=== PATIENT | female | born 2000 | race Caucasian/White ===

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

== ENCOUNTER 2022-08-24 11:24 | Outpatient (REF) | payer MEDICAID, SELFPAY ==
--- NOTE | 2022-08-24 07:40 | PAPFT_PTH ---
PATIENT: Anni Aguiar LOC: [facility] U#:[id number] AGE/SX: 21/F ROOM: RE08/24/[address]: Peña Vargas DNP : 2000 BED: DIS: 08/24/2022 SPEC #: [id number] RECD: 08/24/22 12:41 STATUS: CHARIS REDana #: [id number] ADAN: 08/24/22 07:[address]: Peña Lou DEPT: [facility] Cytology RECD BY: Chely Quevedo Tissues: 1 - CX/ENDOCX FOR PAP SMEARS Procedures: PAP THIN PREP/[facility] Screening Comments: [id number]
== END 2022-08-24 11:25 | disposition home or self-care (01) ==
LOC: LBN 11:24
PROVIDERS: PCP Nurse Practitioner Family; Visit Provider Nurse Practitioner Family
DX: Z12.4 Encounter for screening for malignant neoplasm of cervix (principal)
CPT/HCPCS: 88142

== ENCOUNTER 2023-08-28 10:29 | Outpatient (REF) | payer MEDICAID, SELFPAY ==
[2023-08-29 09:27] LABS: Hepatitis C Ab w Rflx HCV PCR Negative (Negative)
[2023-08-29 09:44] LABS: HIV-1/2 Ag & Ab Screen Negative (Negative)
[2023-08-29 10:50] LABS: Syphilis Serology (RPR) Negative (Negative)
[2023-08-29 13:06] LABS: Chlamydia Result Negative (Negative); GC Result Negative (Negative)
== END 2023-08-28 10:30 | disposition home or self-care (01) ==
LOC: LBN 10:29
PROVIDERS: PCP Nurse Practitioner Family; Visit Provider Nurse Practitioner Family
DX: Z11.3 Encounter for screening for infections with a predominantly sexual mode of transmission (principal)
CPT/HCPCS: 86803; 87389; 87491; 87591; 86592

== ENCOUNTER 2023-10-10 15:01 | Outpatient (REF) | payer MEDICAID, SELFPAY | END 2023-10-10 15:02 | disposition home or self-care (01) | LOC: LBN 15:01 | PROVIDERS: PCP Nurse Practitioner Family; Visit Provider Physician Assistant | DX: J02.9 Acute pharyngitis, unspecified (principal) | CPT/HCPCS: 87070 ==

== ENCOUNTER 2024-01-29 18:52 | Emergency (ER) | payer MEDICAID, SELFPAY ==
[2024-01-29 18:53] VITALS: BP 127/79; PULSE 81; RESP 12; TEMP 36.9; O2SAT 98
--- NOTE | 2024-01-29 20:01 | DI.RAD_ITS ---
Exam(s) XR FINGER RT INDEX EXAM: XR FINGER RT INDEX CLINICAL HISTORY: cat bite mcps, 2nd. TECHNIQUE: 2D digital imaging was performed. COMPARISON: No exams were available for comparison FINDINGS: 3 views No evidence of acute fracture or dislocation. No radiopaque foreign body. No osseous lesions. No e rosions. No degenerative changes. No radiopaque foreign bodies. IMPRESSION: No significant radiographic findings. DATA REPOSITORY: RADIATION DOSE DELIVERED:
[2024-01-29] MEDS: Rabies vaccine (PCEC)/PF 2.5 UNITS/ML VIAL IM (20:30)
[2024-01-29] MEDS: Amox. 875/Clav. 125, 2 TABS/BTL 1 TAB PO (20:30)
[2024-01-29] MEDS: Rabies Immune Globulin 300 UNIT/ML VIAL 1500 UNIT IM (20:30)
--- NOTE | 2024-01-29 20:31 | DI.VRAD_ITS ---
PROCEDURE INFORMATION: Exam: XR Right Finger(s) Exam date and time: 01/29/2024 7:56 PM Age: 23 years old Clinical indication: Injury or trauma; Index finger; Right; Injury date: 01/29/24; Patient HX: Cat bite mcps, 2nd TECHNIQUE: Imaging protocol: Radiologic exam of the right fingers. Views: Minimum 2 views. COMPARISON: No relevant prior studies available. FINDINGS: Bones/joints: Normal. Soft tissues: Normal. IMPRESSION: No acute findings. Dictated and Authenticated by: Fei Romero MD. Ordering:DEMETRIUS Mo MD
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
[2024-01-29 21:12] VITALS: BP 120/75; PULSE 71; RESP 16; O2SAT 100
--- NOTE | 2024-01-30 00:20 | NUR.NOTE ---
Animal Bite Report faxed to [facility] Office attn [facility] Health Officer Stephen Torres. Did not call him due to the hour of the ED visit. Rabies Vaccine Physician Order faxed to [facility] Infusion room.Nursing Note:
== END 2024-01-29 21:12 | disposition home or self-care (01) ==
PROVIDERS: Emergency Provider Physician Assistant; PCP Nurse Practitioner Family
DX: S61.230A Puncture wound without foreign body of right index finger without damage to nail, initial encounter (principal); Z23 Encounter for immunization; W55.01XA Bitten by cat, initial encounter; Z20.3 Contact with and (suspected) exposure to rabies
CPT/HCPCS: 29130; 81025; 90375; 90471; 90472; 90715; 96372; 99284; 73140; 90675; 99283

== ENCOUNTER 2024-02-12 02:43 | Outpatient (RCR) | payer MEDICAID, SELFPAY ==
[2024-02-01] MEDS: Rabies vaccine (PCEC)/PF 2.5 UNITS/ML VIAL IM (07:30)
[2024-02-05] MEDS: Rabies vaccine (PCEC)/PF 2.5 UNITS/ML VIAL IM (07:58)
[2024-02-12] MEDS: Rabies vaccine (PCEC)/PF 2.5 UNITS/ML VIAL IM (08:35)
== END 2024-02-12 23:59 | disposition home or self-care (01) ==
LOC: INF 02:43
PROVIDERS: PCP Nurse Practitioner Family; Visit Provider Physician Assistant
DX: Z29.14 Encounter for prophylactic rabies immune globulin (principal); Z20.3 Contact with and (suspected) exposure to rabies
CPT/HCPCS: 96372; 90675

== ENCOUNTER 2024-07-05 09:59 | Emergency (ER) | payer MEDICAID, SELFPAY ==
[2024-07-05 10:04] VITALS: BP 137/83; PULSE 88; RESP 12; TEMP 36.7; O2SAT 98
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
[2024-07-05 11:00] LABS: Abs Immature Grans 0.05 10^3/uL (0.0-0.06); Absolute Basophil Count 0.08 10^3/uL (0.0-0.2); Absolute Eosinophil Count 0.15 10^3/uL (0.0-0.7); Absolute Lymphocyte Count 3.27 10^3/uL (1.2-3.4); Absolute Monocyte Count 0.65 10^3/uL (0.1-0.8); Absolute Neutrophil Count 7.63 10^3/uL (1.2-6.7); Basophils % 0.7 %; Eosinophils % 1.3 %; HCT 39.6 % (36.0-46.0); HGB 13.3 g/dL (11.2-15.7); Immature Grans % 0.4 %; Lymphocytes % 27.6 %; MCH 29.4 pg (27.0-33.0); MCHC 33.6 % (32.0-36.0); MCV 88 fL (80-95); MPV 9.2 fL (8.0-11.0); Monocytes % 5.5 %; Neutrophils % 64.5 %; Platelet Count 330 10^3/uL (130-400); RBC 4.52 10^6/uL (3.93-5.22); RDW 12.1 % (11.7-14.6); RDW-SD 39.3 fL; WBC 11.83 10^3/uL (4.4-10.8)
[2024-07-05 11:10] LABS: Anion Gap 6.7 mmol/L (3-11); BUN 13 mg/dL (7-18); CO2 27.3 mmol/L (21.0-32.0); CREATININE 0.6 mg/dL (0.55-1.02); Calcium 9.3 mg/dL (8.5-10.1); Chloride 104 mmol/L (98-107); Estimated GFR 130.07 (mL/min/1.73m2); Glucose 85 mg/dL (74-106); Potassium 3.7 mmol/L (3.5-5.1); Sodium 138 mmol/L (136-145)
[2024-07-05 12:12] VITALS: BP 115/71; PULSE 74; RESP 16; TEMP 36.7; O2SAT 99
== END 2024-07-05 12:18 | disposition home or self-care (01) ==
PROVIDERS: Emergency Provider Emergency Medicine; PCP Nurse Practitioner Family
DX: O20.9 Hemorrhage in early pregnancy, unspecified (principal)
CPT/HCPCS: 76815; 76857; 80048; 86850; 86900; 86901; 99284; 85025; 99283

== ENCOUNTER 2024-07-08 03:10 | Outpatient (CLI) | payer MEDICAID, SELFPAY ==
[2024-07-08 11:10] LABS: Panorama Kit Sent via Fed Ex
[2024-07-09 09:26] LABS: Hepatitis B Surface Ag Negative (Negative)
[2024-07-09 10:07] LABS: HIV-1/2 Ag & Ab Screen Negative (Negative)
[2024-07-09 10:22] LABS: Hepatitis C Ab w Rflx HCV PCR Negative (Negative)
[2024-07-09 10:55] LABS: Rubella IgG Ab (UVM) Positive (See Note)
[2024-07-09 10:58] LABS: Varicella IgG Antibody Negative (See Note)
[2024-07-10 18:44] LABS: Syphilis IgG w/Reflex Nonreactive (Nonreactive)
[2024-07-22 13:03] LABS: Result Summary NEGATIVE; Specimen WB Whole Blood
== END 2024-07-08 03:11 | disposition home or self-care (01) ==
LOC: LBO 03:10
PROVIDERS: Advanced Practice Midwife; PCP Nurse Practitioner Family; Visit Provider Advanced Practice Midwife
DX: Z34.91 Encounter for supervision of normal pregnancy, unspecified, first trimester (principal)
CPT/HCPCS: 36415; 81220; 81222; 86787; 86803; 87340; 87389; 86762; 86780

== ENCOUNTER 2024-07-08 10:57 | Outpatient (REF) | payer MEDICAID, SELFPAY | END 2024-07-08 10:58 | disposition home or self-care (01) | LOC: LBN 10:57 | PROVIDERS: PCP Nurse Practitioner Family; Visit Provider Advanced Practice Midwife | DX: Z34.91 Encounter for supervision of normal pregnancy, unspecified, first trimester (principal); O26.891 Other specified pregnancy related conditions, first trimester; N89.8 Other specified noninflammatory disorders of vagina | CPT/HCPCS: 87086; 87480; 87510; 87660 ==

== ENCOUNTER 2024-07-12 00:17 | Outpatient (CLI) | payer MEDICAID, SELFPAY ==
--- NOTE | 2024-07-12 06:00 | DI.US_ITS ---
Exam(s) US OB 1ST TRIMESTER EXAM: US OB 1ST TRIMESTER CLINICAL HISTORY: bleeding in first trimester,O20.9. COMPARISON: US POCUS EXAM from 06/17/2024 US POCUS EXAM from 07/05/2024 TECHNIQUE: Transabdominal Transvaginal first trimester obstetrical ultrasound performed. FINDINGS: Sonographic images demonstrate a single intrauterine gestation. A yolk sac and pole are seen. Sonographically assessed gestational age based upon crown-rump length of 5.17 cm is: 11+ 6 weeks Estimated date of delivery based on this ultrasound is: 25 January 2025 Estimated date of delivery based upon LMP: 27 January 2025 heart rate motion is Dopplered at: 161 bpm. No free fluid identified. The placenta is anterior. No evidence of hemorrhage. No gross evidence previa. Pelvic Measurments Uterus: 10.7 x 6.6 x 7.8 cm Rt Ovary: 4.1 x 1.8 x 4.0 cm Lt Ovary: Not visualized IMPRESSION: Single live intrauterine gestation with composite age 11 weeks 6 days. Anterior placenta appears intact. DATA REPOSITORY:
== END 2024-07-12 00:37 ==
LOC: DI 00:17
PROVIDERS: PCP Nurse Practitioner Family; Visit Provider Advanced Practice Midwife
DX: O26.891 Other specified pregnancy related conditions, first trimester; R10.2 Pelvic and perineal pain; Z3A.11 11 weeks gestation of pregnancy
CPT/HCPCS: 76801

== ENCOUNTER 2024-08-07 09:13 | Outpatient (CLI) | payer MEDICAID, SELFPAY ==
[2024-08-12 12:48] LABS: AFP 28.6 ng/mL; Cigarette smoking status non-Smoker; GA used in risk estimate Scan estimate; IVF Pregnancy No; Initial or repeat testing Initial testing; Insulin dependent diabetes No; Maternal Weight 175 lbs; Number of Fetuses 1; Physician Phone Number 802-748-7300; Prev Pregnancy w/NTD No; RECOMMENDED FOLLOW UP None.; Results Summary Normal risk
== END 2024-08-07 09:14 | disposition home or self-care (01) ==
LOC: LBO 09:13
PROVIDERS: PCP Nurse Practitioner Family; Visit Provider Advanced Practice Midwife
DX: Z34.91 Encounter for supervision of normal pregnancy, unspecified, first trimester (principal)
CPT/HCPCS: 36415; 82105

== ENCOUNTER 2024-08-07 09:15 | Outpatient (REF) | payer MEDICAID, SELFPAY ==
[2024-08-08 11:47] LABS: Chlamydia Result Negative (Negative); GC Result Negative (Negative)
== END 2024-08-07 09:16 | disposition home or self-care (01) ==
LOC: LBN 09:15
PROVIDERS: PCP Nurse Practitioner Family; Visit Provider Advanced Practice Midwife
DX: Z34.91 Encounter for supervision of normal pregnancy, unspecified, first trimester (principal)
CPT/HCPCS: 87491; 87591

== ENCOUNTER 2024-09-03 02:22 | Outpatient (CLI) | payer MEDICAID, SELFPAY ==
--- NOTE | 2024-09-03 06:15 | DI.US_ITS ---
Exam(s) US OB 2-3 TRIMESTER EXAM: US OB 2-3 TRIMESTER CLINICAL HISTORY: ,z34.90. TECHNIQUE: Transabdominal obstetrical ultrasound performed. COMPARISON: US US OB 1ST TRIMESTER from 07/12/2024 FINDINGS: Number of fetuses: 1 position: VARIED heart rate: 130bpm Placental location: There is a grade 1-2 anterior placenta. The placental tip is 2.9 cm from the int ernal os. No evidence of previa. Amniotic fluid index: Amount of fluid is within normal limits. ANATOMICAL SURVEY: Within normal limits. BIOMETRIC DATA: BPD: 4.62cm, 20weeks HC: 17.31cm, 19weeks 6days AC: 14.47cm, 19weeks 6days FL: 2.92cm, 19weeks Cisterna magna: 5.1mm Cerebellum: 1.72cm Lateral ventricle: 0.6 cm EFW: 294.9g, 0.67lb, 65.8% Composite Age: 19weeks 5days SHAGGY: 01/23/2025 Heart Rate: 130bpm ANATOMICAL SURVEY: Four-chambered heart: Unremarkable. RVOT: Unremarkable. LVOT: Unremarkable. Left-sided stomach: Unremarkable. urinary bladder: Unremarkable. Bilateral kidneys: Unremarkable. Three-vessel cord: Unremarkable. Cord insertion: Unremarkable. Posterior fossa: Unremarkable. ventricles: Unremarkable. nose/lips: Unremarkable. Palate: Unremarkable. spine: Unremarkable. Two arms and two legs: Unremarkable. IMPRESSION: 1. Single live intrauterine gestation as above. 2. Normal anatomic survey. DATA REPOSITORY:
== END 2024-09-03 02:42 ==
LOC: DI 02:22
PROVIDERS: PCP Nurse Practitioner Family; Visit Provider Advanced Practice Midwife
DX: Z34.92 Encounter for supervision of normal pregnancy, unspecified, second trimester (principal); Z3A.20 20 weeks gestation of pregnancy
CPT/HCPCS: 76805

== ENCOUNTER 2024-10-30 03:03 | Outpatient (CLI) | payer MEDICAID, SELFPAY ==
[2024-10-30 09:43] LABS: HCT 34.4 % (36.0-46.0); HGB 11.2 g/dL (11.2-15.7); MCH 28.4 pg (27.0-33.0); MCHC 32.6 % (32.0-36.0); MCV 87 fL (80-95); MPV 9.7 fL (8.0-11.0); Platelet Count 256 10^3/uL (130-400); RBC 3.94 10^6/uL (3.93-5.22); RDW 12.3 % (11.7-14.6); RDW-SD 39.4 fL; WBC 13.93 10^3/uL (4.4-10.8)
[2024-10-30 09:55] LABS: Glucose,1 Hr (Glucola) 111 mg/dL (80-140)
== END 2024-10-30 03:04 | disposition home or self-care (01) ==
LOC: LBO 03:03
PROVIDERS: Advanced Practice Midwife; PCP Nurse Practitioner Family; Visit Provider Advanced Practice Midwife
DX: Z34.92 Encounter for supervision of normal pregnancy, unspecified, second trimester (principal)
CPT/HCPCS: 36415; 82950; 85027

== ENCOUNTER 2024-12-30 09:28 | Outpatient (REF) | payer MEDICAID, SELFPAY ==
[2024-12-31 12:24] LABS: Chlamydia Result Negative (Negative); GC Result Negative (Negative)
== END 2024-12-30 09:29 | disposition home or self-care (01) ==
LOC: LBN 09:28
PROVIDERS: PCP Nurse Practitioner Family; Visit Provider Advanced Practice Midwife
DX: Z34.93 Encounter for supervision of normal pregnancy, unspecified, third trimester (principal); Z20.2 Contact with and (suspected) exposure to infections with a predominantly sexual mode of transmission
CPT/HCPCS: 87491; 87591; 87081; 87480; 87510; 87660

== ENCOUNTER 2025-01-27 07:03 | Outpatient (CLI) | payer MEDICAID, SELFPAY ==
[2025-01-27 08:34] VITALS: BP 124/74; PULSE 86; TEMP 36.8
--- NOTE | 2025-01-27 09:51 | W.OBNST ---
Date of service: 01/27/25 Time of Service: 09:51 NST Evaluation Reason for NST Reasons for Nonstress Test: POSTDATES Gestational Age Gestational Age in Weeks and Days: 40 Weeks and 0Days Test and Monitor Explained Test/Monitor Explained: Test Explained, Monitor Explained and Patient Verbalized Understanding Vital Signs Blood Pressure: 124/74 Pulse: 86 Temperature: 98.2 F Weight: 218 lb 8 oz NST Information Date on Monitor: 01/27/25 Time on Monitor: 08:23 Date off Monitor: 01/27/25 Time off Monitor: 08:46 Total Time on Monitor: 23 NST Interventions: PO Hydration Contraction Frequency: irritability, active baby, stronger contractions every Q10 per patient NST Evaluation Patient States Movement: Present FHR Baseline: 130 Variability: Moderate 6-25 bpm Accelerations: 15x15 Decelerations: None NST Results: Reactive Note Ultrasound Done: N/A. NST Note Note: pt declines IOL, prefers to wait for spontaneous labor Return in 1 wk for NST/ANGELITA NST Reviewed and Verified by: Eden Bliss
[2025-01-27 09:52] VITALS: BP 124/74; PULSE 86; TEMP 36.8
== END 2025-01-27 09:01 ==
LOC: BCD 07:03 → OBS 08:30
PROVIDERS: PCP Nurse Practitioner Family; Visit Provider Obstetrics & Gynecology
DX: O48.0 Post-term pregnancy (principal); Z3A.40 40 weeks gestation of pregnancy
CPT/HCPCS: 59025

== ENCOUNTER 2025-02-03 07:51 | Outpatient (CLI) | payer MEDICAID, SELFPAY ==
[2025-02-03 10:07] VITALS: BP 121/73; PULSE 78
[2025-02-03 10:20] VITALS: BP 121/73; PULSE 78; TEMP 36.9
--- NOTE | 2025-02-03 11:20 | W.OBNST ---
Date of service: 02/03/25 Time of Service: 11:20 NST Evaluation Reason for NST Reasons for Nonstress Test: POSTDATES Gestational Age Gestational Age in Weeks and Days: 41 Weeks and 0Days Test and Monitor Explained Test/Monitor Explained: Test Explained, Monitor Explained and Patient Verbalized Understanding Vital Signs Blood Pressure: 121/73 Pulse: 78 Temperature: 98.5 F Weight: 218 lb NST Information Date on Monitor: 02/03/25 Time on Monitor: 10:21 Date off Monitor: 02/03/25 Time off Monitor: 10:46 Total Time on Monitor: 25 NST Interventions: PO Hydration Contraction Frequency: irritability NST Evaluation Patient States Movement: Present FHR Baseline: 120 Variability: Moderate 6-25 bpm Accelerations: 15x15 Decelerations: None NST Results: Reactive Note Ultrasound Done: ANGELITA Indication: Other (Post dates testing) Largest Vertical Pocket: 8.9 Total ANGELITA: 17 Coding for ANGELITA w/NST: Completed Exam. NST Note Note: Anni is here with her mother for post dates testing. ANGELITA performed by Yi Diaz CNM. She prefers to wait until 42 weeks for IOL. Reviewed induction methods She declines cervical exam today but is considering whether she would like an exam in 3 days when she returns for NST. IOL scheduled for 02/10. NST Reviewed and Verified by: Socorro Kyle
[2025-02-03 11:23] VITALS: BP 121/73; PULSE 78; TEMP 36.9
== END 2025-02-03 11:41 ==
LOC: BCD 07:51 → OBS 09:54
PROVIDERS: PCP Nurse Practitioner Family; Visit Provider Advanced Practice Midwife
DX: O48.0 Post-term pregnancy (principal); Z3A.41 41 weeks gestation of pregnancy
CPT/HCPCS: 59025

== ENCOUNTER 2025-02-06 07:06 | Outpatient (CLI) | payer MEDICAID, SELFPAY ==
[2025-02-06 09:08] VITALS: BP 117/69; PULSE 90
[2025-02-06 09:10] VITALS: BP 117/69; PULSE 90; TEMP 36.5
--- NOTE | 2025-02-06 11:37 | W.OBNST ---
Date of service: 02/06/25 Time of Service: 10:00 NST Evaluation Reason for NST Reasons for Nonstress Test: POSTDATES Gestational Age Gestational Age in Weeks and Days: 41 Weeks and 3Days Test and Monitor Explained Test/Monitor Explained: Test Explained, Monitor Explained and Patient Verbalized Understanding Vital Signs Blood Pressure: 117/69 Pulse: 90 Temperature: 97.7 F Urine Results Urine Protein: Negative Urine Ketones: Negative Urine Glucose: Negative Urine Blood: Negative NST Information Date on Monitor: 02/06/25 Time on Monitor: 09:08 Date off Monitor: 02/06/25 Time off Monitor: 09:53 Total Time on Monitor: 45 NST Interventions: PO Hydration and Notify Provider Contraction Frequency: 4-8 Comments: pt does not feel most of the contractions traced by toco NST Evaluation Patient States Movement: Present FHR Baseline: 135 Variability: Moderate 6-25 bpm Accelerations: 15x15 Decelerations: None NST Results: Reactive Note Ultrasound Done: N/A. NST Note Note: Cvx 1/60% mid pelvis, firm, vtx -3, intact membarnes, abdullahi score=4 Recommended to pt to accept induction of labor with cervical ripening tomorrow, also offered outpatient nelson balloon placement this evening. Pt declines IOL until 42 weeks, is scheduled for admission on 02/10 0800. Discussed with pt the increased risks for placental insufficiency with continued , increased risk for c/s d/t arrest of labor or concerns for distress Very strong recommendation against delaying induction past 42 wks upon pt inquiry, she reaffirms declination of intervention before 42 wks, is aware NST is reactive and ANGELITA 3 days ago was 16 Encouraged pt to call for any questions, concerns or if she decides to accept recommendation for IOL sooner than Saturday 02/10 NST Reviewed and Verified by: Eden Bliss
[2025-02-06 11:44] VITALS: BP 117/69; PULSE 90; TEMP 36.5
== END 2025-02-06 10:25 ==
LOC: BCD 07:07 → OBS 09:00
PROVIDERS: PCP Nurse Practitioner Family; Visit Provider Advanced Practice Midwife
DX: O48.0 Post-term pregnancy (principal); Z3A.41 41 weeks gestation of pregnancy
CPT/HCPCS: 59025

== ENCOUNTER 2025-02-09 13:07 | Inpatient (IN) | payer MEDICAID, SELFPAY ==
[2025-02-09] VITALS (7 sets, daily range): BP systolic 129–134; BP diastolic 74–85; PULSE 75–92; RESP 16–18; TEMP 37–37.5; O2SAT 99–100
--- NOTE | 2025-02-09 11:31 | W.OBNST ---
NST Evaluation Gestational Age Gestational Age in Weeks and Days: 41 Weeks and 3Days
[2025-02-09 14:01] LABS: Abs Immature Grans 0.09 10^3/uL (0.0-0.06); HCT 36.6 % (36.0-46.0); HGB 12.0 g/dL (11.2-15.7); Immature Grans % 0.8 %; MCH 26.7 pg (27.0-33.0); MCHC 32.8 % (32.0-36.0); MCV 81 fL (80-95); MPV 10.9 fL (8.0-11.0); Platelet Count 259 10^3/uL (130-400); RBC 4.50 10^6/uL (3.93-5.22); RDW 14.3 % (11.7-14.6); RDW-SD 41.7 fL; WBC 11.55 10^3/uL (4.4-10.8)
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
--- NOTE | 2025-02-09 20:20 | PGE_ITS ---
Date of service: 02/09/25 Time of Service: 20:20 Informed Consent Informed Consent: Risk,Benefits,Alternatives Discussed (Augmentatioon of labor or expetatnt management discussed and risks of infection discussed. ) Pelvic Exam Dilation: 3 Effacement (%): 100 station: -2 Cervix Position: mid Consistency: soft Vaginal Exam Presentation: Cephalic Contractions Monitor Mode: External Contraction Frequency(min): every 3 min Contraction Duration(sec): 60 Intensity: Moderate/Strong Fetus A Monitor: External (US) Heart Rate Baseline: 129 Presentation: Cephalic Variability: Moderate (6-25 BPM) Categories: Category I Accelerations: 15 X 15 Decelerations: None Amniotic Membrane Status: Ruptured Assessment and Plan Assessment and plan (1) Spontaneous onset of labor: Status: Acute Assessment and plan: Comfort measures provided and position changes for comfort. Anticipate . (2) Prolonged rupture of membranes: Status: Acute Assessment and plan: Dr. Knight present on the unit and aware of her status. Amalia Wheat BATTERY TEST ENGINEER was notified of patient's status by Dr. Knight. Objective Abnormal lab results 02/09/25 Range/Units 13:53 WBC 11.55 H (4.4-10.8) 10^3/uL MCH 26.7 L (27.0-33.0) pg Absolute Neutrophils 8.26 H (1.2-6.7) 10^3/uL Temp Pulse Resp BP Pulse Ox 99.5 F 75 17 134/80 99 02/09/25 18:01 02/09/25 20:06 02/09/25 13:14 02/09/25 20:06 02/09/25 13:14 Laboratory Results WBC 11.55 10^3/uL (4.4-10.8) H 02/09/25 13:53 RBC 4.50 10^6/uL (3.93-5.22) 02/09/25 13:53 Hgb 12.0 g/dL (11.2-15.7) 02/09/25 13:53 Hct 36.6 % (36.0-46.0) 02/09/25 13:53 MCV 81 fL (80-95) 02/09/25 13:53 MCH 26.7 pg (27.0-33.0) L 02/09/25 13:53 MCHC 32.8 % (32.0-36.0) 02/09/25 13:53 RDW 14.3 % (11.7-14.6) 02/09/25 13:53 Plt Count 259 10^3/uL (130-400) 02/09/25 13:53 MPV 10.9 fL (8.0-11.0) 02/09/25 13:53 Immature Gran % 0.8 % 02/09/25 13:53 Neutrophils % 71.5 % 02/09/25 13:53 Lymphocytes % 20.1 % 02/09/25 13:53 Monocytes % 6.6 % 02/09/25 13:53 Eosinophils % 0.6 % 02/09/25 13:53 Basophils % 0.4 % 02/09/25 13:53 Nucleated RBC % 0.0 % (0.0-0.3) 02/09/25 13:53 Absolute Neutrophils 8.26 10^3/uL (1.2-6.7) H 02/09/25 13:53 Absolute Lymphocytes 2.32 10^3/uL (1.2-3.4) 02/09/25 13:53 Absolute Monocytes 0.76 10^3/uL (0.1-0.8) 02/09/25 13:53 Absolute Eosinophils 0.07 10^3/uL (0.0-0.7) 02/09/25 13:53 Absolute Basophils 0.05 10^3/uL (0.0-0.2) 02/09/25 13:53 Membranes Rupture Positive 02/09/25 13:41 ABO/Rh O Positive 02/09/25 13:53 Antibody Screen NEGATIVE 02/09/25 13:53 Vital Signs Reviewed: Yes Subjective Patient Reports: New Complaints Interval history since last seen: Anni reports stronger contractions. She has been using the shower for comfort with good effect. Results Hemoglobin/Hematocrit: Hgb 12.0 g/dL (11.2-15.7) 02/09/25 13:53 Hct 36.6 % (36.0-46.0) 02/09/25 13:53 Abnormal Lab Findings: Abnormal Labs 02/09/25 13:53 WBC 11.55 H MCH 26.7 L Absolute Neutrophils 8.26 H
--- NOTE | 2025-02-09 23:31 | W.PM.OBNL1 ---
Date of service: 02/09/25 Time of Service: 23:31 Informed Consent Informed Consent: Risk,Benefits,Alternatives Discussed (Augmentatioon of labor or expetatnt management discussed and risks of infection discussed. ) Pelvic Exam Dilation: 7 Effacement (%): 100 station: -1 Cervix Position: mid Consistency: soft Vaginal Exam Presentation: Cephalic Comments: Large gush of clear fluid with exam from ruptured forebag. Contractions Monitor Mode: Palpation Contraction Frequency(min): every 3-4 Contraction Duration(sec): 60 Intensity: Strong Fetus A Monitor: Doppler Heart Rate Baseline: 120 Presentation: Cephalic Decelerations: None Assessment and Plan Assessment and plan (1) Spontaneous onset of labor: Status: Acute Assessment and plan: Comfort measures provided and twan will continue hydrotherapy. Anticipate . Objective Abnormal lab results 02/09/25 Range/Units 13:53 WBC 11.55 H (4.4-10.8) 10^3/uL MCH 26.7 L (27.0-33.0) pg Absolute Neutrophils 8.26 H (1.2-6.7) 10^3/uL Temp Pulse Resp BP Pulse Ox 99.0 F 92 H 16 132/74 100 02/09/25 23:12 02/09/25 23:12 02/09/25 23:12 02/09/25 23:12 02/09/25 23:12 Laboratory Results WBC 11.55 10^3/uL (4.4-10.8) H 02/09/25 13:53 RBC 4.50 10^6/uL (3.93-5.22) 02/09/25 13:53 Hgb 12.0 g/dL (11.2-15.7) 02/09/25 13:53 Hct 36.6 % (36.0-46.0) 02/09/25 13:53 MCV 81 fL (80-95) 02/09/25 13:53 MCH 26.7 pg (27.0-33.0) L 02/09/25 13:53 MCHC 32.8 % (32.0-36.0) 02/09/25 13:53 RDW 14.3 % (11.7-14.6) 02/09/25 13:53 Plt Count 259 10^3/uL (130-400) 02/09/25 13:53 MPV 10.9 fL (8.0-11.0) 02/09/25 13:53 Immature Gran % 0.8 % 02/09/25 13:53 Neutrophils % 71.5 % 02/09/25 13:53 Lymphocytes % 20.1 % 02/09/25 13:53 Monocytes % 6.6 % 02/09/25 13:53 Eosinophils % 0.6 % 02/09/25 13:53 Basophils % 0.4 % 02/09/25 13:53 Nucleated RBC % 0.0 % (0.0-0.3) 02/09/25 13:53 Absolute Neutrophils 8.26 10^3/uL (1.2-6.7) H 02/09/25 13:53 Absolute Lymphocytes 2.32 10^3/uL (1.2-3.4) 02/09/25 13:53 Absolute Monocytes 0.76 10^3/uL (0.1-0.8) 02/09/25 13:53 Absolute Eosinophils 0.07 10^3/uL (0.0-0.7) 02/09/25 13:53 Absolute Basophils 0.05 10^3/uL (0.0-0.2) 02/09/25 13:53 Membranes Rupture Positive 02/09/25 13:41 ABO/Rh O Positive 02/09/25 13:53 Antibody Screen NEGATIVE 02/09/25 13:53 Subjective Patient Reports: New Complaints Interval history since last seen: Twan is using the tub for comfort with good effect. She is coping well with her contractions with good family support. She was experiencing an urge to push and was examined. Results Hemoglobin/Hematocrit: Hgb 12.0 g/dL (11.2-15.7) 02/09/25 13:53 Hct 36.6 % (36.0-46.0) 02/09/25 13:53 Abnormal Lab Findings: Abnormal Labs 02/09/25 13:53 WBC 11.55 H MCH 26.7 L Absolute Neutrophils 8.26 H
[2025-02-10] VITALS (18 sets, daily range): BP systolic 88–110; BP diastolic 46–65; PULSE 67–92; RESP 16–18; TEMP 35.6–37.4; O2SAT 95–99; BMI 35.5
--- NOTE | 2025-02-10 02:10 | W.PM.OBNL1 ---
Date of service: 02/10/25 Time of Service: 02:10 Informed Consent Informed Consent: Risk,Benefits,Alternatives Discussed (Augmentatioon of labor or expetatnt management discussed and risks of infection discussed. ) Pelvic Exam Dilation: 7 Effacement (%): 100 station: 0 Cervix Position: mid Consistency: soft Vaginal Exam Presentation: Vertex Contractions Monitor Mode: External Contraction Frequency(min): every 2-3 Contraction Duration(sec): 60 Intensity: Strong Fetus A Monitor: External (US) Heart Rate Baseline: 120 Presentation: Vertex Variability: Moderate (6-25 BPM) Categories: Category II FHR Rhythm: Regular Accelerations: 15 X 15 Decelerations: Variable Recurrence: Recurrent Amniotic Membrane Status: Ruptured Assessment and Plan Assessment and plan (1) Prolonged rupture of membranes: Status: Acute Assessment and plan: Afebrile and vital signs WNL. (2) Spontaneous onset of labor: Status: Acute Assessment and plan: Anni agreed to an IV bolus and IV was started and 500 cc bolus LR given. maternal position changes encouraged. Will continue to observe heart rate pattern and consult with Dr. Knight if variable decelerations continue. Will perform cervical exam at 0230 to assess progress. Objective Abnormal lab results 02/09/25 Range/Units 13:53 WBC 11.55 H (4.4-10.8) 10^3/uL MCH 26.7 L (27.0-33.0) pg Absolute Neutrophils 8.26 H (1.2-6.7) 10^3/uL Temp Pulse Resp BP Pulse Ox 99.3 F 92 H 16 132/74 100 02/10/25 00:24 02/09/25 23:12 02/09/25 23:12 02/09/25 23:12 02/09/25 23:12 Laboratory Results WBC 11.55 10^3/uL (4.4-10.8) H 02/09/25 13:53 RBC 4.50 10^6/uL (3.93-5.22) 02/09/25 13:53 Hgb 12.0 g/dL (11.2-15.7) 02/09/25 13:53 Hct 36.6 % (36.0-46.0) 02/09/25 13:53 MCV 81 fL (80-95) 02/09/25 13:53 MCH 26.7 pg (27.0-33.0) L 02/09/25 13:53 MCHC 32.8 % (32.0-36.0) 02/09/25 13:53 RDW 14.3 % (11.7-14.6) 02/09/25 13:53 Plt Count 259 10^3/uL (130-400) 02/09/25 13:53 MPV 10.9 fL (8.0-11.0) 02/09/25 13:53 Immature Gran % 0.8 % 02/09/25 13:53 Neutrophils % 71.5 % 02/09/25 13:53 Lymphocytes % 20.1 % 02/09/25 13:53 Monocytes % 6.6 % 02/09/25 13:53 Eosinophils % 0.6 % 02/09/25 13:53 Basophils % 0.4 % 02/09/25 13:53 Nucleated RBC % 0.0 % (0.0-0.3) 02/09/25 13:53 Absolute Neutrophils 8.26 10^3/uL (1.2-6.7) H 02/09/25 13:53 Absolute Lymphocytes 2.32 10^3/uL (1.2-3.4) 02/09/25 13:53 Absolute Monocytes 0.76 10^3/uL (0.1-0.8) 02/09/25 13:53 Absolute Eosinophils 0.07 10^3/uL (0.0-0.7) 02/09/25 13:53 Absolute Basophils 0.05 10^3/uL (0.0-0.2) 02/09/25 13:53 Membranes Rupture Positive 02/09/25 13:41 ABO/Rh O Positive 02/09/25 13:53 Antibody Screen NEGATIVE 02/09/25 13:53 Subjective Patient Reports: New Complaints Interval history since last seen: Anni has a strong urge to push and has been pushing involuntarily in the tub. She was examined in the tub and was 7 cms/100/0 station. She was assisted out of the tub and she moved to the mat and the cub on the floor. FHTs noted to be in 90s with contraction while lying on her right side. She was moved to the bed and monitor was placed. Results Hemoglobin/Hematocrit: Hgb 12.0 g/dL (11.2-15.7) 02/09/25 13:53 Hct 36.6 % (36.0-46.0) 02/09/25 13:53 Abnormal Lab Findings: Abnormal Labs 02/09/25 13:53 WBC 11.55 H MCH 26.7 L Absolute Neutrophils 8.26 H
[2025-02-10] MEDS: Lactated Ringers 1,000 ML 999 ML IV (02:20)
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
--- NOTE | 2025-02-10 03:28 | W.PM.OBNL1 ---
Date of service: 02/10/25 Time of Service: 03:28 Informed Consent Informed Consent: Risk,Benefits,Alternatives Discussed (Augmentatioon of labor or expetatnt management discussed and risks of infection discussed. ) Pelvic Exam Dilation: 8 Effacement (%): 100 station: 0 Cervix Position: mid Consistency: soft Comments: cervix edematous Contractions Monitor Mode: External Contraction Frequency(min): every 2-3 Contraction Duration(sec): 60 Intensity: Strong Fetus A Monitor: External (US) Heart Rate Baseline: 120 Presentation: Cephalic Variability: Moderate (6-25 BPM) Categories: Category I FHR Rhythm: Regular Accelerations: 15 X 15 Decelerations: Variable Recurrence: Recurrent Assessment and Plan Assessment and plan (1) Post-dates : Status: Acute Assessment and plan: Dr. Bacon is present for delivery and was given report of Twan' status. (2) Arrested labor: Status: Acute Assessment and plan: prepared for . Daljit will accompany twan to the O.R. Objective Abnormal lab results 02/09/25 Range/Units 13:53 WBC 11.55 H (4.4-10.8) 10^3/uL MCH 26.7 L (27.0-33.0) pg Absolute Neutrophils 8.26 H (1.2-6.7) 10^3/uL Temp Pulse Resp BP Pulse Ox 98.4 F 92 H 16 132/74 100 02/10/25 02:28 02/09/25 23:12 02/09/25 23:12 02/09/25 23:12 02/09/25 23:12 Laboratory Results WBC 11.55 10^3/uL (4.4-10.8) H 02/09/25 13:53 RBC 4.50 10^6/uL (3.93-5.22) 02/09/25 13:53 Hgb 12.0 g/dL (11.2-15.7) 02/09/25 13:53 Hct 36.6 % (36.0-46.0) 02/09/25 13:53 MCV 81 fL (80-95) 02/09/25 13:53 MCH 26.7 pg (27.0-33.0) L 02/09/25 13:53 MCHC 32.8 % (32.0-36.0) 02/09/25 13:53 RDW 14.3 % (11.7-14.6) 02/09/25 13:53 Plt Count 259 10^3/uL (130-400) 02/09/25 13:53 MPV 10.9 fL (8.0-11.0) 02/09/25 13:53 Immature Gran % 0.8 % 02/09/25 13:53 Neutrophils % 71.5 % 02/09/25 13:53 Lymphocytes % 20.1 % 02/09/25 13:53 Monocytes % 6.6 % 02/09/25 13:53 Eosinophils % 0.6 % 02/09/25 13:53 Basophils % 0.4 % 02/09/25 13:53 Nucleated RBC % 0.0 % (0.0-0.3) 02/09/25 13:53 Absolute Neutrophils 8.26 10^3/uL (1.2-6.7) H 02/09/25 13:53 Absolute Lymphocytes 2.32 10^3/uL (1.2-3.4) 02/09/25 13:53 Absolute Monocytes 0.76 10^3/uL (0.1-0.8) 02/09/25 13:53 Absolute Eosinophils 0.07 10^3/uL (0.0-0.7) 02/09/25 13:53 Absolute Basophils 0.05 10^3/uL (0.0-0.2) 02/09/25 13:53 Membranes Rupture Positive 02/09/25 13:41 ABO/Rh O Positive 02/09/25 13:53 Antibody Screen NEGATIVE 02/09/25 13:53 Vital Signs Reviewed: Yes Subjective Patient Reports: No new Complaints Interval history since last seen: Twan continues to have a strong urge to push and is bearing down. She is using nitrous oxide but has been unable to resist the urge to bear down. Dr. Knight was paged and she examined Twan and discussed with her for failure to prgress and category 2 tracing and Twan and her family agree. Results Hemoglobin/Hematocrit: Hgb 12.0 g/dL (11.2-15.7) 02/09/25 13:53 Hct 36.6 % (36.0-46.0) 02/09/25 13:53 Abnormal Lab Findings: Abnormal Labs 02/09/25 13:53 WBC 11.55 H MCH 26.7 L Absolute Neutrophils 8.26 H
[2025-02-10] MEDS: AZITHROMYCIN 500 MG in Normal Saline 250 ML 250 MG IVPB (03:29)
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
[2025-02-10] MEDS: Lactated Ringers 1,000 ML 125 ML IV (03:31)
[2025-02-10] MEDS: ceFAZolin 2 GM/50 ML BAG IVPB (04:04)
--- NOTE | 2025-02-10 04:24 | PLAC_PTH ---
PATIENT: Anni Aguiar LOC: OBS U#:[id number] AGE/SX: 24/F ROOM: OBS.305 RE02/09/[address]: Socorro Kyle : 2000 BED: A DIS: 02/12/2025 SPEC #: [id number] RECD: 02/10/25 12:25 STATUS: CHARIS REQ #: [id number] ADAN: 02/10/25 04:[address]: Socorro Kyle DEPT: Surgical Specimen RECD BY: Chely Quevedo ENTERED: 02/10/25 12:26 SP TYPE: PLAC OTHR DR: Peña Vargas DNP Tissues: 1 - PLACENTA (3RD TRIMESTER) Procedures: GROSS AND MICRO LEVEL 5 Comments: [id number]
--- NOTE | 2025-02-10 05:05 | W.PM.OBCSECT ---
Date of service: 02/10/25 Time of Service: 05:05 Operative Note Operative Note Delivery Method: Unscheduled STAT: No and Primary NTSV>37 Weeks: Yes DATE OF PROCEDURE: 02/10/25 PRE-OP DIAGNOSES: Labor arrest, prolonged rupture of membranes, postdates POST-OP DIAGNOSES: same PROCEDURE: Primary low-transverse SURGEON: Elizabeth Knight Paper Reel Operator: Bhavik Baires Anesthesia: local and spinal Estimated blood loss (mL): 800 Pathology: other (Placenta for exam) Complications: None Patient was transported to: floor Patient's condition: stable Indications: Postdates , prolonged rupture of membranes, arrest of labor, category 2 heart rate tracing Findings: Delivery of viable male infant. Apgars per report. Weight 9 pounds. Normal-appearing tubes, ovaries, uterus. Mild to moderate lower uterine segment atony Procedure Description: After full informed consent was obtained, patient was taken the operating suite with an IV running. She is placed in the seated position and spinal anesthesia administered. She was then placed in the dorsal supine position with leftward tilt. heart tones auscultated at 100. In an expeditious fashion, she had a vaginal preparation with placement of Dutton catheter, cervical examination with cephalad pressure of the vertex, abdominal preparation. She had pneumatic compression stockings for DVT prophylaxis. She received Ancef 2 g, and Zithromax 500 mg for surgical site infection prophylaxis. A timeout was held. A Pfannenstiel skin incision was made and carried down to the underlying fascia. The fascia was incised in the midline and fascial incision extended laterally. The fascia was elevated and the rectus muscles identified and in the midline. The peritoneum identified and entered bluntly. Marcelle DeLee bladder blade was inserted and vesicouterine peritoneum identified and incised for creation of a bladder flap. A low transverse uterine incision was made and extended bluntly laterally. The shoulder was noted to be at the site of the uterine incision. In a gentle way the vertex was then elevated through the uterine incision. There was no evidence of nuchal cord. Shoulders followed with ease. A three-vessel cord was noted clamped x 2 and cut and the was handed off to the waiting electronic plotting system operator. At this point, cord segment was obtained for arterial and venous blood gas. Cord blood sample was obtained. The placenta was manually expressed from the uterus. The uterus was then exteriorized and cleared of all clots and debris. The uterine incision was closed in a 2 layer closure of 0 Monocryl suture with the first layer being running locked, second being imbricating. The uterus was then returned to the abdomen. Patient did receive 1 g of TXA after delivery of the baby. She received IV Pitocin for uterine tonicity. Abdomen was irrigated with copious amounts of normal saline and the uterine incision reinspected and noted to be hemostatic. Bladder was intact without trauma, though somewhat edematous in nature. At this point the fascial incision was closed using 0 Vicryl suture in a running fashion. Subcutaneous tissue irrigated with copious amounts of normal saline and subcu space closed with 3-0 Vicryl suture in a simple interrupted fashion. Skin edge was reapproximated in a subcuticular fashion with 4-0 undyed Monocryl suture and Steri-Strips and a sterile dressing were placed. Patient was then returned to the floor in stable condition with a Dutton catheter draining clear yellow urine. Findings: Delivery of a viable male infant weighing 9 pounds with Apgars 8 and 9. Normal-appearing tubes ovaries and uterus. Complications: None apparent Fluids: Crystalloid per anesthesia Pathology: Placenta for examination Qualitative blood loss: 800 mL
[2025-02-10] MEDS: Bupivacaine 0.25% Pres-Free 30 ML VIAL (05:06)
[2025-02-10] MEDS: Ketorolac 15 MG/ML VIAL IVP ×2 (13:46→20:00)
[2025-02-10] MEDS: Normal Saline Flush 10 ML SYR IVP (13:47)
--- NOTE | 2025-02-10 15:42 | W.ANESPOSTOP ---
Postoperative Evaluation Date, Time and Location Date Performed: 02/10/25 Time Performed: 15:42 Patient Location: Obstetrics Vital Signs Most Recent Imported Vital Signs: Most Recent Vital Signs Temp Pulse Resp BP Pulse Ox 36.6 C 80 16 107/65 96 02/10/25 11:58 02/10/25 13:57 02/10/25 13:57 02/10/25 13:57 02/10/25 13:57 Pain Score Most Recent Pain Score: Most Recent Pain Score Pain Level 3 02/10/25 13:46 Assessment Mental Status: Awake (Alert & Oriented to Patient Baseline) Airway and Respiratory Function: Patent airway with normal (patient baseline) respiratory exam Cardiovascular Function: Hemodynamically Stable Hydration Status: Adequately Hydrated Nausea & Vomiting: No Nausea or Vomiting Pain: Pt. Denies Any Pain Peripheral Nerve Block: Patient did not receive a nerve block
[2025-02-11] MEDS: Ketorolac 15 MG/ML VIAL IVP (01:56)
[2025-02-11 01:59] VITALS: BP 104/68; PULSE 77; RESP 18; TEMP 36.5
[2025-02-11 06:51] LABS: Abs Immature Grans 0.08 10^3/uL (0.0-0.06); HCT 28.6 % (36.0-46.0); HGB 9.3 g/dL (11.2-15.7); Immature Grans % 0.6 %; MCH 27.1 pg (27.0-33.0); MCHC 32.5 % (32.0-36.0); MCV 83 fL (80-95); MPV 11.1 fL (8.0-11.0); Platelet Count 204 10^3/uL (130-400); RBC 3.43 10^6/uL (3.93-5.22); RDW 14.7 % (11.7-14.6); RDW-SD 44.8 fL; WBC 12.73 10^3/uL (4.4-10.8)
--- NOTE | 2025-02-11 07:32 | W.PM.OBPNV1 ---
Date of service: 02/11/25 Time of Service: 07:32 Assessment and Plan Assessment and plan (1) Arrested labor: Status: Acute Assessment and plan: Patient seen postop day #1 status post primary low-transverse . Hemoglobin has an appropriate drop to 9.3. She is asymptomatic. Her urine output is appropriate. Her Dutton remains in situ due to labial edema. This will be discontinued today when she is up and moving around. All questions answered. Possible discharge tomorrow. (2) Status post primary low transverse section: Status: Acute Exam Physical Exam Vital signs: Temp Pulse Resp BP Pulse Ox 97.7 F 77 18 104/68 96 02/11/25 01:59 02/11/25 01:59 02/11/25 01:59 02/11/25 01:59 02/10/25 13:57 Vital Signs Reviewed: Yes Narrative: Patient seen this morning. Doing well. Pain is well-controlled. Her Dutton remains in situ as she has had some labial swelling due to her involuntary pushing for the an extended period of time yesterday. Will reevaluate. Constitutional Constitutional: no acute distress HEENT Exam HEENT Exam: Normal Neck Exam Neck Exam: Normal Respiratory Exam Respiratory Exam: Normal Cardiovascular Exam Cardiovascular Exam: Normal Results Hemoglobin/Hematocrit: Hgb 9.3 g/dL (11.2-15.7) L D 02/11/25 06:10 Hct 28.6 % (36.0-46.0) L 02/11/25 06:10 Abnormal Lab Findings: Abnormal Labs 02/09/25 02/11/25 13:53 06:10 WBC 11.55 H 12.73 H RBC 3.43 L Hgb 9.3 L D Hct 28.6 L MCH 26.7 L RDW 14.7 H MPV 11.1 H Absolute Neutrophils 8.26 H 8.87 H Absolute Monocytes 0.84 H
[2025-02-11] MEDS: Acetaminophen 325 MG TAB 650 MG PO ×2 (09:39→15:17)
[2025-02-11] MEDS: Ibuprofen 600 MG TAB PO ×2 (09:39→18:21)
[2025-02-11] MEDS: Docusate Sodium 100 MG CAP PO (09:40)
[2025-02-11 09:44] VITALS: BP 114/66; PULSE 91; RESP 18; TEMP 36.9; O2SAT 97
[2025-02-11 13:19] VITALS: BP 115/64; PULSE 82; RESP 18; TEMP 37.3; O2SAT 97
[2025-02-11 17:29] VITALS: BP 125/72; PULSE 77; TEMP 37.3; O2SAT 99
[2025-02-11 20:42] VITALS: BP 124/83; PULSE 76; RESP 18; TEMP 36.6
[2025-02-12] MEDS: Acetaminophen 325 MG TAB 650 MG PO ×3 (01:56→13:26)
[2025-02-12] MEDS: Ibuprofen 600 MG TAB PO ×3 (01:57→13:26)
[2025-02-12] MEDS: Docusate Sodium 100 MG CAP PO (07:42)
[2025-02-12 07:44] VITALS: BP 113/86; PULSE 63; RESP 17; TEMP 36.5; O2SAT 99
--- NOTE | 2025-02-12 08:57 | OBPPV_ITS ---
Date of service: 02/12/25 Time of Service: 08:57 Assessment and Plan Assessment and plan (1) Status post primary low transverse section: Status: Acute Assessment and plan: Patient is postoperative day 2 status post primary low-transverse due to arrested labor. She was at 42 weeks gestation and had spontaneous onset of labor. She progressed to the point that she was 7 cm dilated and with no further cervical dilation or descent, and inadequate pain control, and category 2 heart rate tracing, consultation with directional drill operator was performed. At this point, risk, benefits, and alternatives of were discussed with the patient and informed consent was obtained. She underwent a primary low-transverse section for delivery of her 9 pound . She had uncomplicated postoperative course and was discharged to home postoperative day #2 status post her delivery. She was ambulatory, tolerating regular diet and oral pain medication with stable vital signs. She will be seen back in the office in 1, 2, and 6 weeks. Prescriptions will be sent to the pharmacy. Subjective Subjective Interval history: Patient seen and examined. Doing well. No issues or concerns. Her pain is well-controlled. She is breast-feeding without difficulty. She has been ambulatory. We did discuss discharge planning and she anticipates discharge home today. Patient's Mood: Appropriate [place] feeding status: Exclusively breast feeding Exam Physical Exam Vital signs: Temp Pulse Resp BP Pulse Ox 97.7 F 63 17 113/86 99 02/12/25 07:44 02/12/25 07:44 02/12/25 07:44 02/12/25 07:44 02/12/25 07:44 Vital Signs Reviewed: Yes Constitutional Constitutional: no acute distress HEENT Exam HEENT Exam: Normal Neck Exam Neck Exam: Normal Respiratory Exam Respiratory Exam: Normal Cardiovascular Exam Cardiovascular Exam: Normal Abdominal Exam Abdomen: Tender Comments: Mepilex in place Fundal Exam Fundus: Below Umbilicus and Firm Extremities Exam Extremity Exam: Normal; negative Calf Tenderness or Edema Skin Exam Skin Exam: Normal Results Hemoglobin/Hematocrit: Hgb 9.3 g/dL (11.2-15.7) L D 02/11/25 06:10 Hct 28.6 % (36.0-46.0) L 02/11/25 06:10 Abnormal Lab Findings: Abnormal Labs 02/09/25 02/11/25 13:53 06:10 WBC 11.55 H 12.73 H RBC 3.43 L Hgb 9.3 L D Hct 28.6 L MCH 26.7 L RDW 14.7 H MPV 11.1 H Absolute Neutrophils 8.26 H 8.87 H Absolute Monocytes 0.84 H
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
[2025-02-12 14:34] VITALS: BP 131/79; PULSE 72; RESP 16; TEMP 36.7; O2SAT 99
== END 2025-02-12 17:15 | disposition home or self-care (01) | DRG 788 ==
PROVIDERS: Obstetrics & Gynecology; Admitting Provider Advanced Practice Midwife; PCP Nurse Practitioner Family; Visit Provider Advanced Practice Midwife
PROC: 10D00Z1 Extraction of Products of Conception, Low, Open Approach (ICD-10-PCS; CPT 59514; principal; 2025-02-10 03:40)
DX: O42.92 Full-term premature rupture of membranes, unspecified as to length of time between rupture and onset of labor (principal); O48.0 Post-term pregnancy; O76 Abnormality in fetal heart rate and rhythm complicating labor and delivery; Z37.0 Single live birth; O66.8 Other specified obstructed labor; O62.1 Secondary uterine inertia; Z3A.42 42 weeks gestation of pregnancy; O99.62 Diseases of the digestive system complicating childbirth; O99.344 Other mental disorders complicating childbirth; F41.9 Anxiety disorder, unspecified; K58.1 Irritable bowel syndrome with constipation
CPT/HCPCS: 59514; 36415; 84112; 86850; 86900; 86901; 85025; 88307; J0131; J0456; J0665; J0690; J1885; J2274; J2371; J2405; J2590; J3010